=== PATIENT | female | born 1995 | race Caucasian/White ===

== ENCOUNTER 2016-10-28 15:08 | Emergency (ER) | payer OTHER ==
--- NOTE | ~2016-10-28 | CT71 ---
[facility] A Service of [facility] RADIOLOGY TEXT RESULTS PATIENT: HASEEB FOURNIER LOCATION: [facility] [facility] : [birth year] UNIT #: [id number] AGE: [address]: Alexander Mathur DO SEX: F ORDER DR: [id number] [facility] [address] [place], [place] [address] [id number] E MR#: [id number] Acc #: [id number] NAME: HASEEB FOURNIER : 1995 SEX: F STUDY DATE/TIME: 10/28/2016 19:30 UNIT: [facility] ROOM: STUDY DESCRIPTION: CT Head Wo Contrast Attending Physician: Alexander Mathur D.O. Ordering Physician: Alexander Mathur D.O. Primary Care Physician: No Primary Care Physician MEDICAL IMAGING REPORT This report is preliminary unless electronic signature is present EXAM CT head without contrast, dated 10/28/16. COMPARISON None. HISTORY Headache, congestion for 2 days. Frontal headaches and light sensitivity is seen. TECHNIQUE This CT exam was performed with one or more of the following radiation dose reduction techniques: automatic exposure control, adjustment of mA and/or kV according to patient size, and iterative reconstruction. FINDINGS CT of the head was obtained without contrast in the axial plane as per the protocol. Axial noncontrast images were obtained from the skull base to the vertex. Ventricular size and configuration are normal. There is no evidence of acute infarct or hemorrhage. There are no extra-axial fluid collections. No mass lesion or mass effect is seen. There are no skull fractures. Minimal paranasal sinus mucosal thickening is seen. IMPRESSION Normal noncontrast head CT. Dictated by... Monica Mcbride M.D. THIS IS AN ELECTRONICALLY VERIFIED REPORT Monica Mcbride M.D. at 10/30/2016 8:33 PM CPR/jt [facility] A Service [facility] RADIOLOGY TEXT RESULTS PATIENT: HASEEB FOURNIER LOCATION: [facility] : [birth year] UNIT #: [id number] AGE: [address]: Alexander Mathur DO SEX: F ORDER DR: TD: 10/28/2016 23:22 JOB #: [id number] MEDICAL IMAGING REPORT Page 1 of 1 COPY
--- NOTE | ~2016-10-28 | CR63 ---
[facility] A Service of [facility] RADIOLOGY TEXT RESULTS PATIENT: HASEEB FOURNIER LOCATION: [facility] : [birth year] UNIT #: [id number] AGE: [address]: Alexander Mathur DO SEX: F ORDER DR: [id number] [facility] [address] [place], [place] [address] [id number] E MR#: [id number] Acc #: [id number] NAME: HASEEB FOURNIER : 1995 SEX: F STUDY DATE/TIME: 10/28/2016 16:22 UNIT: [facility] ROOM: STUDY DESCRIPTION: CR Chest 2 View Attending Physician: Alexander Mathur D.O. Ordering Physician: Alexander Mathur D.O. Primary Care Physician: No Primary Care Physician MEDICAL IMAGING REPORT This report is preliminary unless electronic signature is present EXAM Chest, 2 views, dated 10/28/16. COMPARISON Single view chest dated 07/20/15. HISTORY Chest pain radiating to the back, cough and congestion. FINDINGS Two views of the chest were obtained. PA and lateral examination of the chest upright shows a good expansion of the parenchyma with a normal distribution of the pulmonary vascularity. There is no indication of congestion, effusion, infiltrate, tumor, or nodular density. The pleural reflections and diaphragmatic contours are normal. The cardiac silhouette and mediastinal anatomy is within normal limits. IMPRESSION Normal two-view chest. Dictated by... Monica Mcbride M.D. THIS IS AN ELECTRONICALLY VERIFIED REPORT Monica Mcbride M.D. at 10/30/2016 8:32 PM CPR/jt TD: 10/28/2016 19:42 JOB #: [id number] MEDICAL IMAGING REPORT Page 1 of 1 COPY
[~2016-10-28 15:08] MED LIST: ACYCLOVIR PO; ALBUTEROL17 GM INH; ATARAX PO; BENADRYL PO; DICYCLOMINE HCL20 MG PO; FAMOTIDINE PO; FLEXERIL10 MG PO; HYDROMET SYRUP480 ML PO; KEFLEX PO; KEFLEX500 M1 PO; MACROBID 100 M100 MG PO; NAPROSYN500 MG PO; NASONEX17 GM; NO MEDICATIONS; PHENERGAN25 MG PO; PREDNISONE PO; TAMIFLU75 M1 DOB; VICODIN 5/500 T1 TAB PO
[2016-10-28 16:21] LABS: BASOPHIL% 0.3 % (0-2.5); EOSINOPHIL% 0.2 % (0.0-7.0); HEMATOCRIT 39.2 % (35.0-45.0); HEMOGLOBIN 12.8 gm/dL (12.0-16.0); LYMPHOCYTE# 0.9 X10e3 (1.0-3.5); LYMPHOCYTE% 5.7 % (17.0-45.0); MEAN CELL VOLUME 84.7 FL (83-96); MEAN CORPUSCULAR HEMOGLOBIN 27.6 PG (28-34); MEAN CORPUSCULAR HGB CONC 32.6 g/dL (30-36); MEAN PLATELET VOLUME 7.8 FL (6.5-11.5); MONOCYTE# 0.8 X10e3 (0-1.0); MONOCYTE% 5.1 % (3.0-12.0); NEUTROPHIL# 13.6 X10e3 (1.5-7.1); NEUTROPHIL% 88.7 % (40-75); PLATELET COUNT 214 X10e3 (140-420); RED BLOOD COUNT 4.63 X10e (3.90-5.30); RED CELL DISTRIBUTION WIDTH 12.8 % (11.0-15.5); WHITE BLOOD COUNT 15.3 X10e3 (4.0-10.5)
[2016-10-28 16:22] LABS: DIFF IND YES
[2016-10-28 16:26] LABS: CALCIUM SERUM 8.4 mg/dL (8.4-10.2); CREATININE SERUM 0.7 mg/dL (0.6-1.4); GLOM FILT RATE Estimated 122.1 mL/min (>60); POTASSIUM 3.7 mmol/L (3.5-5.1)
[2016-10-28 16:49] LABS: ANISOCYTOSIS SL; PLATELET ESTIMATE NORMAL (NORMAL)
[2016-10-28 17:36] LABS: URINE SOURCE CLEAN CATCH
[2016-10-28 17:58] LABS: URINE APPEARANCE CLEAR; URINE BLOOD TRACE (NEG); URINE COLOR DK YELLOW; URINE GLUCOSE NEG (NEG); URINE KETONE 2+ (NEG); URINE LEUKOCYTE ESTERASE TRACE (NEG); URINE NITRATE NEG (NEG); URINE PROTEIN 1+ (NEG); URINE SPECIFIC GRAVITY 1.032 (1.003-1.035)
[2016-10-28 18:01] LABS: CULTURE INDICATED? YES; URBCS1 AUWI 25-50 /[HPF] (0-2); URINE BACTERIA AUWI 1+ (NEGATIVE); URINE SQUAMOUS EPITHELIAL CELL MOD /[HPF]
[2016-10-28 18:04] LABS: URINE BILIRUBIN NEG (NEG)
[2017-02-01] MEDS ORDERED: BIRTH CONTROL PILL (13:33)
== END 2016-10-28 20:26 | disposition home or self-care (01) ==
LOC: CED 15:08
PROVIDERS: Emergency Medicine
DX: J02.0 Streptococcal pharyngitis (principal); F17.200 Nicotine dependence, unspecified, uncomplicated
CPT/HCPCS: 36415; 70450; 71020; 80048; 81003; 84703; 85025; 87086; 87880; 96372; 96374; 96375; 99284; J0561; J1100; J1885; J2405